=== PATIENT | male | born 1950 | race Caucasian/White ===

== ENCOUNTER 2021-07-08 07:25 | Outpatient (CLI) | payer OTHER, SELFPAY ==
--- NOTE | 2021-07-08 07:37 | US_ITS ---
WS: [id number] ULTRASOUND RENAL TECHNIQUE: Ultrasound examination of both kidneys. CLINICAL INFORMATION: STAGE 3A CKD COMPARISON: None. FINDINGS: RIGHT: Tiny right renal cyst measuring 7 mm. Right kidney is normal in size and appearance. Echogenicity: Normal. Cortical thickness: 1.0 cm; Normal. Hydronephrosis: None. Perinephric fluid: None. Right kidney measures: 11.4 cm x 7.1 cm x 4.2 cm. LEFT: Simple left renal cyst measuring 2.2 x 1.7 x 1.9 CM in the upper pole. Left kidney is normal in size and appearance. Echogenicity: Normal. Cortical thickness: 1.2 cm; Normal. Hydronephrosis: None. Perinephric fluid: None. Left kidney measures: 11.9 cm x 7.3 cm x 4.3 cm. Normal visualized aorta. Bladder volume 161 cc. Prominent prostate measuring 4.2 x 3.9 x 2.9 CM. Dennis mmend correlation PSA. US/US renal BI* [id number] IMPRESSION: 1. No hydronephrosis in either kidney. 2. Bilateral simple renal cysts. 3. Bladder is partially decompressed. 4. Prominent prostate measuring 4.2 x 3.9 x 2.9 CM. Recommend correlation PSA.
== END 2021-07-08 07:26 | disposition home or self-care (01) ==
LOC: RAD 07:31
PROVIDERS: PCP Emergency Medicine Emergency Medical Services; Visit Provider Registered Nurse
DX: N18.31 Chronic kidney disease, stage 3a (principal); Q61.02 Congenital multiple renal cysts; N40.0 Benign prostatic hyperplasia without lower urinary tract symptoms
CPT/HCPCS: 76770

== ENCOUNTER 2023-04-08 07:16 | Outpatient (RCR) | payer OTHER, SELFPAY | END 2023-04-22 23:59 | disposition home or self-care (01) | LOC: SPT 07:16 | PROVIDERS: PCP Emergency Medicine Emergency Medical Services; Visit Provider Emergency Medicine Emergency Medical Services | DX: I89.0 Lymphedema, not elsewhere classified (principal) | CPT/HCPCS: 97161 ==

== ENCOUNTER → 2023-09-06 15:15 | Outpatient (BNVA) | payer OTHER, SELFPAY | PROVIDERS: PCP Emergency Medicine Emergency Medical Services; Referring Provider Emergency Medicine Emergency Medical Services; Visit Provider Internal Medicine Cardiovascular Disease | DX: R07.9 Chest pain, unspecified (principal); I45.10 Unspecified right bundle-branch block; R06.02 Shortness of breath; I80.3 Phlebitis and thrombophlebitis of lower extremities, unspecified; E11.9 Type 2 diabetes mellitus without complications; E78.2 Mixed hyperlipidemia | CPT/HCPCS: 93005; 99204 ==

== ENCOUNTER 2023-09-12 07:33 | Outpatient (CLI) | payer OTHER, SELFPAY ==
--- NOTE | 2023-09-12 08:00 | USCV_ITS ---
Aquilino Del Rosario Age: 73 Gender: M : 1950 Exam Date: 09/12/2023 08:08 Ordering Phys: Mike Mercado MD ([email or web address]) Technologist: NAGA Exam Location: [facility] – [place] Indication: sob, EKG, CAD BP: 118 / 74 HR: 160 Rhythm: Sinus Technical Quality: Technically difficult study MEASUREMENTS (Male / Female) Normal Values 2D ECHO LV Diastolic Diameter PLAX 4.5 cm 4.2 - 5.9 / 3.9 - 5.3 cm IVS Diastolic Thickness 1.4 cm 0.6 - 1.0 / 0.6 - 0.9 cm IVS Systolic Thickness 1.7 cm LVPW Diastolic Thickness 1.4 cm 0.6 - 1.0 / 0.6 - 0.9 cm LVPW Systolic Thickness 1.9 cm LVOT Diameter 2.3 cm LV Ejection Fraction 2D Teich 50.1 % LV Ejection Fraction MOD 2C 72.8 % LV Ejection Fraction 2C AL 75.3 % LA Diameter 3.3 cm RA Systolic Volume 4C AL 20.6 ml RA Systolic Volume 4C MOD 19.2 ml Aorta at Sinotubular Diameter 3.4 cm IVC Diameter 2.2 cm M-MODE LA Ao Ratio MM 0.9 AV Cusp Separation MM 1.5 cm DOPPLER AV Peak Velocity 142.0 cm/s LVOT Peak Velocity 118.0 cm/s AV Area Cont Eq vti 4.1 cm squared AV Area Cont Eq pk 3.6 cm squared MV Peak Velocity 81.0 cm/s MV Area PHT 4.7 cm squared Mitral E to A Ratio 0.8 TR Peak Velocity 130.5 cm/s TR Peak Gradient 6.8 mmHg TR Mean Velocity 85.0 cm/s TR Mean Gradient 3.4 mmHg TR Velocity Time Integral 21.9 cm Right Atrial Pressure 3.0 mmHg Pulmonary Artery Systolic Pressu 9.8 mmHg PV Peak Velocity 114.5 cm/s RV Ejection Time 0.3 s FINDINGS Left Ventricle Normal left ventricular size and systolic function, EF 72%.mild left ventricular hypertrophy. No regional wall motion abnormalities. Grade I/IV diastolic dysfunction (abnormal relaxation filling pattern), normal to mildly elevated filling pressures. Right Ventricle Normal right ventricular size and systolic function. Right Atrium Normal right atrial size. Left Atrium Normal left atrial size. Mitral Valve No gross abnormalities noted Aortic Valve No gross abnormalities noted Tricuspid Valve No gross abnormalities noted Pulmonic Valve Mild pulmonary valve regurgitation. Pericardium No pericardial effusion. Aorta Normal aortic annulus size. IVC Normal inferior vena cava. CONCLUSIONS Normal left ventricular size and systolic function, EF 72%.mild left ventricular hypertrophy. No regional wall motion abnormalities. Grade I/IV diastolic dysfunction (abnormal relaxation filling pattern), normal to mildly elevated filling pressures. Mild pulmonary valve regurgitation. Normal cardiac chamber sizes. There is no pericardial effusion. Technically difficult study because of the poor ultrasonic window. Dr Mike eMrcado MD FACC (Electronically Signed) Final Date: 14 September 2023 08:18 S
== END 2023-09-12 07:34 | disposition home or self-care (01) ==
PROVIDERS: PCP Emergency Medicine Emergency Medical Services; Visit Provider Internal Medicine Cardiovascular Disease
DX: I37.1 Nonrheumatic pulmonary valve insufficiency (principal); I51.7 Cardiomegaly; I51.89 Other ill-defined heart diseases
CPT/HCPCS: 93306

== ENCOUNTER 2023-09-16 07:15 | Outpatient (CLI) | payer OTHER, SELFPAY ==
--- NOTE | 2023-09-16 07:28 | ECG_ITS ---
[facility] Test Date: 2023-09-16 Pat Name: Aquilino Del Rosario Department: Room: Gender: Male Bander Hand: Munira Love : 1950 Requested By: Mike Mercado Order Number: [id number] Jerrod MD: Mike Mercado M.D. Interpretive Statements NAME OF STUDY: LEXISCAN SESTAMIBI STRESS TEST INDICATION: SOB, CHF, PROCEDURE: At the baseline, the EKG revealed normal sinus rhythm with occasional PVCs. The baseline heart was 94 bpm with a blood pressue of 119/78 mm of Hg Lexiscan was infused over a period of 20 seconds. A total of 0.4 milligrams of Lexiscan was infused. The stress phase was continued for a total of 5 minutes. Heart rate at the end of the stress phase was 94 bpm with a blood pressure 112/76 mm of Hg. The EKG at the peak infusion revealed more frequent PVCs. Sestamibi was injected 20 seconds after the Lexiscan infusion. Heart rate at the end of the recovery phase was 91 bpm with a blood pressure of 109/78 mm of Hg. CONCLUSION: 1. No significant EKG changes with the LexiScan infusion 2. No LexiScan induced chest pain . More frequent PVCs with the Lexiscan infusion 3. Normal blood pressure and heart rate response 4. Sestamibi/sestamibi perfusion scan pending; see separate report. Electronically Signed On 09-18-2023 20:43:00 CDT by Mike Mercado M.D. [id number]
--- NOTE | 2023-09-16 07:28 | NMCV_ITS ---
NM magdaleno perf SPECT r/s* [id number] Aquilino Del Rosario Age: 73 Gender: M : 1950 Exam Date: 09/16/2023 08:05 Ordering Phys: Mike Mercado MD ([email or web address]) Technologist: EDGAR Perez Exam Location: [facility] Indications: CORONARY ANGIOPLASTY STATUS STRESS TEST Please see separate stress test report in [facility] for full findings IMAGE PROTOCOL Rest/Stress 1 Lexiscan Day Radiopharmaceutical Dose (mCi) Administration Site Administered by Rest: Tc-99m 11.0 IV EDGAR Guerrier Sestamibi Stress:Tc-99m 33.0 IV EDGAR Guerrier Sestamibi Rest: 16-Sep-2023 60 Discovery 630 Stress: 16-Sep-2023 30 Discovery 630 0.4mg Lexiscan. Supine position only as patient was unable to lay prone. SPECT RESULTS Technical Quality: Excellent Raw Data Analysis: Normal, Soft tissue attenuation Image Corrections: No attenuation or motion correction applied Summed Stress Score: 3 Summed Rest Score: 0 Summed Difference Score: 3 PERFUSION FINDINGS Small to moderate area of moderately decreased tracer uptake was noted in the mid and apical inferior wall region with some reversibility FUNCTIONAL RESULTS (calculated via Gated SPECT) Stress Image LV EF (%): 58 Stress EDV (mL):177 TID: 1.06 Stress ESV (mL):75 FUNCTIONAL FINDINGS: Segmental wall motion analysis revealing no gross wall motion abnormalities IMPRESSIONS 1. Myocardial perfusion imaging revealing small to moderate area of moderately decreased tracer uptake involving the mid and apical inferior wall region, with some reversibility suggesting myocardial ischemia in the distribution of the right coronary artery. 2. Normal LV ejection fraction of 58%. 3. LV wall motion analysis revealing no gross wall motion abnormalities. 4. Mildly dilated LV cavity with end-systolic volume was 75 ml No similar previous studies are available for comparison Dr Mike Mercado MD FACC (Electronically Signed) Final Date: 16 September 2023 15:27 S
[2023-09-16 07:30] VITALS: BMI 48.7
[2023-09-16] MEDS: regadenoson 0.4 Mg/5 ml Syringe 0.400000000000000022 MG IVP (08:48)
[2023-09-16 08:58] VITALS: BP 109/78; PULSE 95
== END 2023-09-16 07:16 | disposition home or self-care (01) ==
LOC: CDL 07:16
PROVIDERS: PCP Emergency Medicine Emergency Medical Services; Visit Provider Internal Medicine Cardiovascular Disease
DX: Z98.61 Coronary angioplasty status (principal)
CPT/HCPCS: 36415; 78452; 93017; 96374; A9500; J2785

== ENCOUNTER → 2023-11-30 10:14 | Outpatient (BNVA) | payer OTHER, SELFPAY | PROVIDERS: PCP Emergency Medicine Emergency Medical Services; Visit Provider Nurse Practitioner Family | DX: R06.02 Shortness of breath (principal); Z87.891 Personal history of nicotine dependence | CPT/HCPCS: 99213 ==

== ENCOUNTER → 2024-02-29 13:36 | Outpatient (BNVA) | payer OTHER, SELFPAY | PROVIDERS: PCP Emergency Medicine Emergency Medical Services; Visit Provider Internal Medicine Cardiovascular Disease | DX: I50.9 Heart failure, unspecified (principal); R06.02 Shortness of breath; R94.39 Abnormal result of other cardiovascular function study; Z79.01 Long term (current) use of anticoagulants; I48.91 Unspecified atrial fibrillation; I25.118 Atherosclerotic heart disease of native coronary artery with other forms of angina pectoris; E78.2 Mixed hyperlipidemia; I80.3 Phlebitis and thrombophlebitis of lower extremities, unspecified; E11.9 Type 2 diabetes mellitus without complications | CPT/HCPCS: 99215 ==

== ENCOUNTER 2024-03-09 13:47 | Outpatient (CLI) | payer OTHER, SELFPAY ==
[2024-03-09 14:18] LABS: Basophils % 0.4 %; Eosinophils # 0.2 10^3/uL (0.0-0.8); Hematocrit 36.2 % (37-53); Lymphocytes # 0.8 10^3/uL (0.8-4.8); Lymphocytes % 10.4 %; Mean Corpuscular HGB Conc 31.5 g/dL (30-55); Mean Corpuscular Hemoglobin 27.5 pg (27-33); Mean Corpuscular Volume 87.4 fl (82-101); Monocytes # 0.5 10^3/uL (0.2-0.9); Monocytes % 5.9 %; Neutrophils # 6.22 10^3/uL (1.8-7.7); Nucleated Red Blood Cells % 0 %; Platelet Count 253 10^3/cmm (157-399); Red Blood Count 4.14 10^6/uL (3.85-5.65); Red Cell Distribution Width 17.2 % (12.1-15.1); White Blood Count 7.77 10^3/uL (3.29-11.43)
[2024-03-09 14:46] LABS: Anion Gap 15.6 (5-19); Blood Urea Nitrogen 29 mg/dL (8-23); Calcium 8.9 mg/dL (8.5-10.5); Carbon Dioxide 25 mmol/L (22-29); Chloride 103 mmol/L (98-107); Glucose 152 mg/dL (65-115); NT Pro B Type Natriuretic Pept 262 pg/mL (0-125); Osmolality Calculated 297 mOsm/kg (285-295); Potassium 4.6 mmol/L (3.5-5.1); Sodium 139 mmol/L (136-145)
== END 2024-03-09 13:48 | disposition home or self-care (01) ==
LOC: LAB 13:48
PROVIDERS: PCP Emergency Medicine Emergency Medical Services; Visit Provider Internal Medicine Cardiovascular Disease
DX: R06.02 Shortness of breath (principal); I25.118 Atherosclerotic heart disease of native coronary artery with other forms of angina pectoris; Z79.01 Long term (current) use of anticoagulants; I48.91 Unspecified atrial fibrillation
CPT/HCPCS: 36415; 80048; 83880; 85025; 85610; 86850; 86900

== ENCOUNTER 2024-03-23 09:32 | Observation (INO) | payer OTHER, MEDICARE, SELFPAY ==
[2024-03-23] VITALS (16 sets, daily range): BP systolic 98–170; BP diastolic 71–104; PULSE 73–94; RESP 13–28; TEMP 36.8–37.5; O2SAT 91–97; BMI 45.6
[2024-03-23] MEDS: aspirin 325 mg Tablet PO (07:17)
[2024-03-23] MEDS: diphenhydrAMINE 50 mg Capsule PO (07:18)
[2024-03-23 07:28] LABS: Anion Gap 14.7 (5-19); Blood Urea Nitrogen 21 mg/dL (8-23); Calcium 9.1 mg/dL (8.5-10.5); Carbon Dioxide 27 mmol/L (22-29); Chloride 100 mmol/L (98-107); Creatinine Clr Calc Pharmacy 76.3575; Glucose 128 mg/dL (65-115); Osmolality Calculated 289 mOsm/kg (285-295); Potassium 4.7 mmol/L (3.5-5.1); Sodium 137 mmol/L (136-145)
--- NOTE | 2024-03-23 07:44 | PC.NURSE ---
250ml IV NS bolus administered. Bolus started out of 1000ml NS bag pulled from salvage laborer.
--- NOTE | 2024-03-23 08:21 | W.PM.OPSUD ---
Surgery/Procedure H&P Update DATE OF PROCEDURE: March 23, 2024 DATE H&P PERFORMED: 02/29/24 H&P UPDATE INFORMATION: I have reviewed H&P completed within last 30 days, I have examined patient prior to procedure and No changes to prior documentation PREOP DIAGNOSIS: Possible ASHD PRIMARY INDICATION FOR PROCEDURE: CHF, Abnrmal MPI, multiple risk factors PLANNED PROCEDURE: Operation Date: 03/23/24 08:30 Proposed Procedures p Cardiac Catheterization(Left) - Mike Mercado MD PATIENT REASSESSED PRIOR TO SEDATION, WITH NO CHANGE NOTED: Yes PHYSICAL EXAM: alert, oriented x 3, clear to auscultation bilaterally and regular rate & rhythm AIRWAY EVAL/ANESTHESIA PLAN: normal airway, see other exam findings, ASA III, Monitored Anesthesia, Local Anesthesia, Risks, benefits & alternatives of sedation and/or procedure discussed and Patient agrees to continue as planned
--- NOTE | 2024-03-23 08:30 | XACV_ITS ---
Exam Room: 2 Ht: 178 cm Wt: 144 kg BSA: 2.74 m2 Gender: Male : 1950 Any Known Allergies: No known allergies Exam Priority: Routine Procedure(s): Procedure Description: Diagnostic procedure Procedure Description: Left Heart Catheterization Procedure Description: Left ventriculography Procedure Description: Coronary Angiography Rogelio SOLOMON; Diagnostic Cath Status: Elective Diagnostic Findings * The left main is extremely short vessel with no significant stenotic lesions. * The left anterior descending artery is a medium caliber vessel which appears to wraparound the left and right apex. Mid and distal segment of the artery were found to have some minimal intimal irregularities. No significant stenotic lesions were noted. * The left circumflex artery is a medium caliber vessel with minimal intimal irregularities proximally. No Significant is noted lesions. * The right coronary artery is a medium to large caliber, dominant vessel with no c significant stenotic lesions. The proximal segment of the artery was found to have minimal intimal irregularities. * The LV gram was performed in the AC projection. The LV cavity appeared to be normal size. There is mild diffuse hypokinesis left ventricular ejection fraction of 45 to 50%. Conclusions 1. 74-year-old white male with history of diabetes, dyslipidemia, presenting with new onset of heart failure. Myocardial perfusion imaging revealed a small areas of reversible and is reversible defect in the distribution of the right coronary artery. Patient continued to have shortness of breath with exertion. In view of the new onset of symptoms, multiple risk factors and the ongoing symptoms, in order to further evaluate the coronary status, a cardiac catheterization was recommended. Patient underwent left heart catheterization with left and right coronary angiogram and LV angiogram today. The findings are as follows. 2. qShort left main with no significant stenotic lesions. Minimal intimal irregularities in the proximal segments of the left anterior descending artery, left circumflex artery and the right coronary artery. Slightly diminished ejection fraction of 45 to 50%. Mild diffuse hypokinesia of the left ventricle. LVEDP of 26 with went up to 34 following the LV angiogram. Diagnostic RX Recommendation: medical therapy and/or counseling LV EDP: 26 mmHg Ventriculography Ejection Fraction: 45.0 % Left Ventriculography Findings: * The LV gram was performed in the AC projection. The LV cavity appeared to be normal size. There is mild diffuse hypokinesia left ventricular ejection fraction of 45 to 50%. No filling defects were noted. No significant mitral valve prolapse or mitral regurgitation. The LVEDP was 26 which went up to 34 following the LV angiogram. Pressures Phase:Rest AO : 104 / 78 ( 91 ) @ 9:42:00 AM 105 / 73 ( 86 ) @ 9:47:00 AM 110 / 91 ( 101 ) @ 10:00:00 AM 134 / 83 ( 106 ) @ 10:06:00 AM 135 / 77 ( 107 ) @ 10:06:00 AM LV : 125 / 7 / 26 @ 10:05:00 AM 113 / 20 / 34 @ 10:06:00 AM 129 / 11 / 33 @ 10:06:00 AM Valves Phase:DefaultPhase AV : 0.0 @ 9:10:49 AM AV Mean Gradient: 0.0 @ 9:10:49 AM Clinical Evaluation EBL: 5mL-10mL Procedural Details Procedure Consent Obtained. Pre-Procedure Time Out. Identified patient by full name and date of as verbalized by the patient/guarantor. Does the consent match the physician's order: Yes. Accurate & Complete Informed Consent: Yes. Inpatient/Outpatient History & Physical on Chart: Yes. If H&P is completed, is and addenduem needed: No; If yes, is the addendum complete: N/A. Visualize and Verify Site with Patient/Guarantor: N/A. Relevant Radiology Images available: Yes. Pre-op teaching completed and patient verbalized understanding. The risks, benefits, and alternatives of sedation and/or procedure were discussed by physician. The patient agrees to continue. Procedure started. Current Diagnosis : Chest Pain. [facility] Clinical Fraility Score: 3: Managing Well. Logistics Officer Indications: Other. Chest Pain Symptom Assessment: Atypical Angina. Correct patient, site and procedure confirmed by cath team. Current diagnosis: Chest Pain. PERRLA. Strong, equal hand fire support specialist bilaterally. Lungs clear x 5 lobes. IV Site on Arrival: 20 gauge in the right anticubital. IV Fluids: 0.9% NaCl at KVO. 0 mL infused prior to clinical genetics laboratory chief. Pre Procedural Pulses: bilateral dorsalis pedis was Doppled. Pre Procedural Pulses: bilateral posterior tibial was Doppled. Pre Procedural Pulses: bilateral radial was 3+. Oxygen started at 2liters/min via nasal canula. right groin was prepped with chloroprep then draped in the usual sterile fashion. right radial was prepped with chloroprep then draped in the usual sterile fashion. Baseline sample Acquired. HR: 85 BPM. Physician notified. Physician arrived. Physician scrubbed in. Immediate Pre-Procedure Time Out. Correct Patient: Yes; Correct Procedure: Yes; Correct Site: Yes; Correct Patient Position: Yes; Correct Supplies: Yes; Dried Flammable Prep: Yes; Blood Products Available: N/A;. Lidocaine 1% infiltrated to the right radial. Arterial access obtained. A 5 [place] Jose Elias catheter in over wire. Catheter removed over the exchange wire. A 5 [place] TIG catheter in over wire. Multiple views taken of left coronary artery. Catheter removed over the exchange wire. A 5 [place] JR4 catheter in over wire. Multiple views taken of right coronary artery. Catheter removed over the exchange wire. A 5 [place] Angled Pig catheter in over wire. EDP Sample taken: LV 125/7,26; HR: 87 BPM; SpO2: 99%. LV gram performed in AC @ 10 mL/second for a total of 30 mL. EDP Sample taken: LV 113/20,34; HR: 85 BPM; SpO2: 99%. Pullback taken: LV 129/11,33; AO 134/83(106); Mean: 0mmHg, Peak to Peak: 0mmHg, SEP: 7sec/min; HR: 87 BPM; SpO2: 99%. Catheter removed over the exchange wire. Vital chart was stopped. A TR Band was successful obtaining hemostatsis at the Right Radial artery insertion site. Post Procedure: Pulses reassessed and unchanged. PERRLA. Strong, equal hand fire support specialist bilaterally. No VTE prophylaxis required. Medication's Wasted: Lidocaine 1% = 18 mL. Medication's Wasted: Nitro = 49.8 mcg. Medication's Wasted: Heparin = 1000 units. Medication's Wasted: Other = Fentanyl 50 mcg. Complications: None. Estimated blood loss: 5mL-10mL. Responsiveness - Normal response to verbal stimuli; alert and oriented, PERRLA. Airway - Unaffected, no intervention required; spontaneous ventilation. Circulation: W/N/L, pulses unchanged. Nausea/Vomiting: No. Procedure completed. Patient transferred by bed to 1st floor. Access Site Site: Right Radial artery Sheath Size: 6 Fr Hemostasis Method: TR Band Hemostasis Success: Successful Procedure Medications Start: 8:27 AM Stop: 8:27 AM Medication: Versed Amount: 1 mg Route: I.V. Start: 8:27 AM Stop: 8:27 AM Medication: Fentanyl Amount: 50 mcg Route: I.V. Start: 8:38 AM Stop: 8:38 AM Medication: Verapamil Amount: 5 mg Route: I.A. Start: 8:38 AM Stop: 8:38 AM Medication: Nitrogylcerin Amount: 200 mcg Start: 8:41 AM Stop: 8:41 AM Medication: Heparin Amount: 5000 units Route: I.V. Start: 8:52 AM Stop: 8:52 AM Medication: Versed Amount: 1 mg Route: I.V. I, the attending physician, have reviewed and verified all procedure medications. Yes, all medications given per verbal order History/Risk Factors Hypertension: No Dyslipidemia: Yes Diabetic Therapy: Oral Peripheral Arterial Disease (PAD): No Myocardial Infarction (FL): No Obesity: Yes Renal Disease: No Tobacco Use: Former Prior Interventions PCI: No CABG: No Valve Surgery: No Report Signatures Finalized by Dr Mike Mercado MD [facility] on 03/23/2024 05:21 PM
--- NOTE | 2024-03-23 09:16 | P.HP_ITS ---
Providers/Chief Complaint 2 Admitting Physician: Dr. ROSALBA Mercado Primary Care Provider: Geraldo Lazcano DO Chief Complaint: R94.39 History of Present Illness Aquilino Del Rosario is a 74 year old male with a history of diabetes, dyslipidemia,and chronic kidney disease is diagnosed with a new onset of heart failure. He had a myocardial perfusion imaging which reveals some areas of fixed and reversible defects in the distribution of the right coronary artery. He continues to have dyspnea on exertion. In view of his ongoing symptoms, in order to further evaluate the coronary status, a cardiac catheterization was recommended. Because of chronic kidney disease, he was given IV hydration preoperatively. He was found to have cardiomyopathy with an LV ejection fraction around 45%. LVEDP was 26 mmHg. He is admitted to the hospital for careful IV hydration and observation. Review of Systems 2 Narrative: CONSTITUTIONAL: No fever chills weight loss or gain or night sweats. HEENT: Normocephalic, atraumatic. RESPIRATORY: No cough, sputum, hemoptysis or wheezing. CARDIOVASCULAR: No shortness of breath, chest pain, PND, orthopnea, lower extremity edema, presyncope or syncope. GI: no nausea vomiting diarrhea. OFFICE CLERK: No numbness, tingling, weakness or loss of function in any part of the body. MUSCULOSKELETAL: No knee or joint pain or rashes. Medications/Allergies Home Medications Medication Instructions Recorded Confirmed Last Taken Type cholecalciferol (vitamin D3) 50 50 mcg PO DAILY 09/06/23 03/12/24 03/22/24 17:00 History mcg (2,000 unit) capsule empagliflozin 25 mg tablet 25 mg PO DAILY 09/06/23 03/12/24 03/22/24 17:00 History furosemide 40 mg tablet 40 mg PO DAILY 09/06/23 03/12/24 03/21/24 History gabapentin 300 mg capsule 300 mg PO BID 09/06/23 03/12/24 Unknown History glipizide 10 mg tablet 10 mg PO DAILY 09/06/23 03/12/24 03/22/24 07:00 History metformin 1,000 mg tablet 1,000 mg PO DAILY 09/06/23 03/12/24 03/22/24 07:00 History pioglitazone 45 mg tablet 45 mg PO DAILY 09/06/23 03/12/24 03/21/24 History ropinirole 4 mg tablet 4 mg PO DAILY 09/06/23 03/12/24 03/23/24 05:00 History rosuvastatin 40 mg tablet 40 mg PO DAILY 09/06/23 03/12/24 03/22/24 07:00 History sertraline 50 mg tablet 50 mg PO DAILY 09/06/23 03/12/24 03/23/24 05:00 History isosorbide mononitrate 30 mg 30 mg PO DAILY #90 tabs 09/28/23 03/12/24 03/22/24 17:00 Rx tablet,extended release 24 hr Allergies Allergy/AdvReac Type Severity Reaction Status Date / Time No Known Allergies Allergy Verified 03/12/24 07:54 PFSH Acute 2 PFSH: Medical History Phlebitis and thrombophlebitis of lower extremities, unspecified Hyperlipidemia, unspecified Type 2 diabetes mellitus without complications Family History Father CAD (coronary artery disease) Congenital heart disease Congestive heart failure (CHF) Heart disease Denies family history of Diabetes Anemia Aneurysm Arrhythmia Atrial fibrillation TIA (transient ischemic attack) Hyperlipidemia Hyperthyroidism Hypothyroidism Sudden cardiac Chronic kidney disease (CKD) Carotid artery disease Pulmonary embolism Hypertension Cardiomyopathy Stroke Social History Smoking and tobacco/nicotine status: former use of tobacco/nicotine Vitals/I&O/Wt Last Vital Signs Temp 98.3 F 03/23/24 07:18 Pulse 93 03/23/24 07:18 Resp 18 03/23/24 07:18 BP 126/79 03/23/24 07:18 Pulse Ox 93 03/23/24 07:18 O2 Del Method Room Air 03/23/24 07:18 Weight last 48 hrs Weight 318 lb Physical Exam 2 Narrative: GENERAL: The patient is alert and oriented times three. Not in any acute distress. HEENT: No significant pallor, icterus or lymphadenopathy.Oral cavity: There are no mucous membrane lesions. NECK: Trachea appears to be central. No masses noted. No JVD or thyromegaly appreciated. RESPIRATORY: Chest is symmetrical. No intercostals muscle retraction or any accessory muscle activation. There is no chest wall tenderness. Breath sounds are heard bilaterally. No rales or rhonchi heard. No evidence of any consolidation. BREASTS: Deferred. HEART: The heart sounds are normal. No S3 or S4. No significant murmurs. No pericardial rub ABDOMEN: No vessel pulsations or distention. No tenderness. No organomegaly appreciated. Bowel sounds are normally heard. : Deferred. RECTAL: Deferred. LYMPHATIC: No lymphadenopathy noted in the neck. EXTREMITIES: No edema or cyanosis. No clubbing. The right radial arterial puncture site has no hematoma bleeding MUSCULOSKELETAL: No acute joint deformities or swelling SKIN: There are no significant rashes or ecchymosis NEUROPSYCHIATRIC: The patient is alert and oriented x3. Appears to be in a good mood. No tremors or rigidity noted. Data 03/23/24 07:00 Other Labs: Laboratory Last Values Sodium 137 mmol/L (136-145) 03/23/24 07:00 Potassium 4.7 mmol/L (3.5-5.1) 03/23/24 07:00 Chloride 100 mmol/L (98-107) 03/23/24 07:00 Carbon Dioxide 27 mmol/L (22-29) 03/23/24 07:00 Anion Gap 14.7 (5-19) 03/23/24 07:00 BUN 21 mg/dL (8-23) 03/23/24 07:00 Creatinine 1.2 mg/dL (0.7-1.2) 03/23/24 07:00 GFR Calculation Not Reportable 03/23/24 07:00 Glucose 128 mg/dL (65-115) H 03/23/24 07:00 Calculated Osmolality 289 mOsm/kg (285-295) 03/23/24 07:00 Calcium 9.1 mg/dL (8.5-10.5) 03/23/24 07:00 A&P Assessment and plan (1) Nonischemic congestive cardiomyopathy: The patient will be initiated on guideline directed medical treatment. Careful IV Lasix on a as needed basis. (2) Hyperlipidemia, unspecified: May continue on the current management Qualifiers: Hyperlipidemia type: mixed hyperlipidemia Qualified Code(s): E78.2 - Mixed hyperlipidemia (3) Congestive heart failure: Will be closely monitoring for development of any decompensated heart failure. Qualifiers: Heart failure type: unspecified Heart failure chronicity: unspecified Qualified Code(s): I50.9 - Heart failure, unspecified (4) Type 2 diabetes mellitus without complications: Hold off on metformin for today and for the next 2 days. Qualifiers: Diabetes mellitus truck terminal manager insulin use: without senior care use Qualified Code(s): E11.9 - Type 2 diabetes mellitus without complications (5) Chronic kidney disease: Careful IV hydration today. Repeat BMP in the morning. Qualifiers: Chronic kidney disease stage: stage 2 (mild) Qualified Code(s): N18.2 - Chronic kidney disease, stage 2 (mild) Plan Based on the clinical progress, further management decisions will be made. Attestations 2 Medical Necessity Statement*: Patient may require 1 midnight stay. Coding Level of Care Code Acute Code for g Fwd Diagnoses Nonischemic congestive cardiomyopathy I42.0 Mixed hyperlipidemia E78.2 Hyperlipidemia type: mixed hyperlipidemia Congestive heart failure, unspecified HF chronicity, unspecified heart failure type I50.9 Heart failure type: unspecified Heart failure chronicity: unspecified Type 2 diabetes mellitus without complication, without long-term current use of insulin E11.9 Diabetes mellitus truck terminal manager insulin use: without truck terminal manager use Stage 2 chronic kidney disease N18.2 Chronic kidney disease stage: stage 2 (mild)
--- NOTE | 2024-03-23 09:36 | PC.NURSE ---
Patient came from laboratory clerk to CSU at 0920, with a right radial TR-band.
[2024-03-23] MEDS: sodium chloride 0.9% 1,000 ML 100 ML IV ×2 (09:53→15:32)
[2024-03-23 11:25] LABS: Glucose Point of Care 123 mg/dL (70-110)
--- NOTE | 2024-03-23 16:34 | PC.NURSE ---
Patient had a right radial TR-band, no hematoma is noted. Air is removed slowly 2ml's at a time. TR-band is removed and dressing of 2 x 2 and tegaderm is applied. Patient tolerated well. Patient is reminded not to use his right hand/wrist. He states understanding.
--- NOTE | 2024-03-23 18:29 | PC.NURSE ---
Patient refused to take his gabapentin at 1800. Patient states I stopped taking that about 5 months ago due to side effects.
[2024-03-23] MEDS: sacubitril/valsartan 24-26 mg Tablet 1 EACH PO (20:45)
[2024-03-24] VITALS: BP 118/77; PULSE 78; RESP 20; TEMP 36.9; O2SAT 91
[2024-03-24 03:48] VITALS: BP 123/73; PULSE 92; RESP 20; TEMP 36.3; O2SAT 99
[2024-03-24 04:27] VITALS: PULSE 89
[2024-03-24 06:33] LABS: Anion Gap 13.7 (5-19); Blood Urea Nitrogen 13 mg/dL (8-23); Calcium 9.1 mg/dL (8.5-10.5); Carbon Dioxide 26 mmol/L (22-29); Chloride 103 mmol/L (98-107); Creatinine Clr Calc Pharmacy 76.2847; Glucose 106 mg/dL (65-115); Osmolality Calculated 287 mOsm/kg (285-295); Potassium 4.7 mmol/L (3.5-5.1); Sodium 138 mmol/L (136-145)
[2024-03-24 08:00] VITALS: BP 138/83; PULSE 92; RESP 17; TEMP 36.6; O2SAT 93
[2024-03-24] MEDS: pioglitazone 30 mg Tablet 45 MG PO (08:34)
[2024-03-24] MEDS: FUROsemide 40 mg Tablet PO (08:34)
[2024-03-24] MEDS: ropinirole 2 mg Tablet 4 MG PO (08:34)
[2024-03-24] MEDS: isosorbide mononitrate ER 30 mg Tablet PO (08:34)
[2024-03-24] MEDS: sertraline 50 mg Tablet PO (08:34)
[2024-03-24] MEDS: atorvastatin 40 mg Tablet 80 MG PO (08:35)
[2024-03-24] MEDS: sacubitril/valsartan 24-26 mg Tablet 1 EACH PO (08:35)
[2024-03-24] MEDS: cholecalciferol (vitamin D3) 1,000 unit Tablet 2000 UNIT PO (08:35)
--- NOTE | 2024-03-24 10:04 | PC.NURSE ---
Dejuan is called into [facility]. [facility] and ernestina does not work with the [facility] providers.
[2024-03-24 10:10] VITALS: BP 138/83; PULSE 92; RESP 17; TEMP 36.6; O2SAT 93
== END 2024-03-24 10:35 | disposition home or self-care (01) ==
LOC: CSU 09:34
PROVIDERS: Admitting Provider Internal Medicine Cardiovascular Disease; PCP Emergency Medicine Emergency Medical Services; Visit Provider Internal Medicine Cardiovascular Disease
DX: I42.0 Dilated cardiomyopathy (principal); I50.9 Heart failure, unspecified; E78.2 Mixed hyperlipidemia; E11.22 Type 2 diabetes mellitus with diabetic chronic kidney disease; N18.2 Chronic kidney disease, stage 2 (mild); Z79.899 Other long term (current) drug therapy; Z87.891 Personal history of nicotine dependence; I80.3 Phlebitis and thrombophlebitis of lower extremities, unspecified; I48.91 Unspecified atrial fibrillation; Z79.01 Long term (current) use of anticoagulants; Z82.49 Family history of ischemic heart disease and other diseases of the circulatory system
CPT/HCPCS: 36415; 36416; 80048; 82962; 93458; 99152; 99153; C1769; C1887; C1894; G0378; J1644; J2250; J3010; J3490; J7030; Q0163; Q9967

== ENCOUNTER → 2024-04-04 14:01 | Outpatient (BNVA) | payer OTHER, SELFPAY | PROVIDERS: PCP Emergency Medicine Emergency Medical Services; Visit Provider Nurse Practitioner Family | DX: I42.8 Other cardiomyopathies (principal); I25.10 Atherosclerotic heart disease of native coronary artery without angina pectoris; I13.10 Hypertensive heart and chronic kidney disease without heart failure, with stage 1 through stage 4 chronic kidney disease, or unspecified chronic kidney disease; E11.22 Type 2 diabetes mellitus with diabetic chronic kidney disease; N18.4 Chronic kidney disease, stage 4 (severe); Z87.891 Personal history of nicotine dependence; Z79.84 Long term (current) use of oral hypoglycemic drugs | CPT/HCPCS: 99213 ==

== ENCOUNTER 2024-09-24 06:44 | Outpatient (CLI) | payer OTHER, SELFPAY ==
--- NOTE | 2024-09-24 06:50 | USCV_ITS ---
Aquilino Del Rosario Age: 74 Gender: M : 1950 Exam Date: 09/24/2024 06:55 Ordering Phys: Jaye Mejía MD Technologist: [facility] [place] [facility] [place] TDS due to pt habitus HISTORY: Diameter (cm) AP x Transverse x Length Velocity (cm/s) Waveform Prox Aorta: 2.10 x 2.70 x 58.80 Mid Aorta: 2.00 x 2.10 x 114.90 Distal Aorta: 2.40 x 2.60 x 94.10 Right Iliac Prox: 1.07 x 1.19 x 134.60 Left Iliac Prox: 1.07 x 0.98 x 136.20 Stent Prox Landing x x Aneurysmal Sac Max x x Lt Lat Sac Dim Rt Lat Sac Dim Stent Dist Landing x x Right Iliac Stent x x Left Iliac Stent x x Right Renal Art Left Renal Art FINDINGS: Comparison: none available. A complete assessment of the abdominal aorta was not possible. Ectatic abdominal aorta with evidence of atherosclerotic plaque noted. There is evidence of atherosclerotic plaque no significan stenosis in the right common iliac artery. There is evidence of atherosclerotic plaque no significan stenosis in the left common iliac artery. CONCLUSIONS Limited exam by body habitus. No AAA identified. Dr. Tyalor Jorge DO (Electronically Signed) Final Date: 24 September 2024 07:49 S
== END 2024-09-24 06:45 | disposition home or self-care (01) ==
PROVIDERS: Visit Provider Family Medicine
DX: Z01.89 Encounter for other specified special examinations (principal); I77.811 Abdominal aortic ectasia; I70.0 Atherosclerosis of aorta; I70.8 Atherosclerosis of other arteries
CPT/HCPCS: 76706

== ENCOUNTER → 2024-10-30 11:42 | Outpatient (BNVA) | payer OTHER, SELFPAY | PROVIDERS: PCP Nurse Practitioner; Visit Provider Internal Medicine Cardiovascular Disease | DX: R06.02 Shortness of breath (principal) | CPT/HCPCS: 36415; 80048; 83880 ==

== ENCOUNTER 2024-12-14 05:59 | Outpatient (CLI) | payer OTHER, SELFPAY ==
--- NOTE | 2024-12-14 06:15 | USCV_ITS ---
Aquilino Del Rosario Age: 74 Gender: M : 1950 Exam Date: 12/14/2024 06:30 Ordering Phys: Mike Mercado MD ([email or web address]) Technologist: Benny Canales Exam Location: [facility] – [place] Indication: cardiomyopathy BP: 131 / 83 HR: 77 Rhythm: Sinus Technical Quality: Adequate MEASUREMENTS (Male / Female) Normal Values 2D ECHO LV Diastolic Diameter PLAX 4.7 cm 4.2 - 5.9 / 3.9 - 5.3 cm IVS Diastolic Thickness 1.5 cm 0.6 - 1.0 / 0.6 - 0.9 cm IVS Systolic Thickness 2.0 cm LVPW Diastolic Thickness 2.1 cm 0.6 - 1.0 / 0.6 - 0.9 cm LVPW Systolic Thickness 3.1 cm LVOT Diameter 2.1 cm LV Ejection Fraction 2D Teich 62.3 % LV Ejection Fraction MOD 4C 74.7 % LV Ejection Fraction MOD 2C 65.0 % LV Ejection Fraction 2C AL 67.0 % LA Diameter 4.1 cm RA Systolic Volume 4C AL 20.3 ml RA Systolic Volume 4C MOD 19.4 ml LA Sys Volume AL 54.4 cm cubed LA Sys Volume Index AL 24.8 cm cubed/m squared Aorta at Sinotubular Diameter 2.8 cm IVC Diameter 1.9 cm M-MODE LA Ao Ratio MM 1.2 AV Cusp Separation MM 2.1 cm DOPPLER AV Peak Velocity 151.0 cm/s LVOT Peak Velocity 75.0 cm/s AV Area Cont Eq vti 2.0 cm squared AV Area Cont Eq pk 1.8 cm squared MV Peak Velocity 87.7 cm/s MV Area PHT 6.0 cm squared Mitral E to A Ratio 0.9 TR Peak Velocity 291.0 cm/s TR Peak Gradient 33.9 mmHg TR Mean Velocity 227.0 cm/s TR Mean Gradient 21.9 mmHg TR Velocity Time Integral 71.2 cm PV Peak Velocity 126.3 cm/s RV Ejection Time 0.3 s FINDINGS Left Ventricle Normal left ventricular size, systolic function and wall thickness, with no regional wall motion abnormalities. LVEF estimated normal at 65%. Right Ventricle Normal right ventricular size and systolic function. Right Atrium Normal right atrial size. Left Atrium Normal left atrial size. Mitral Valve Mildly thickened mitral valve. Trace mitral regurgitation. Aortic Valve Mildly thickened aortic valve. No aortic stenosis. Tricuspid Valve Structurally normal tricuspid valve. Trace tricuspid valve regurgitation. Pulmonic Valve Pulmonic valve not well visualized. Trace pulmonary valve regurgitation. Pericardium No pericardial effusion. Aorta Normal size aortic root and proximal ascending aorta. IVC Normal IVC dimension with >50% respiratory change of the inferior vena cava. CONCLUSIONS Normal LV systolic function. Normal LVEF, 65%. Normal RV size and RV systolic function. Normal right and left atria. No significant valvular abnormality noted. Normal right heart and pulmonary pressures (PAP 25-30 mmHg). Ivonne Smith MD (Electronically Signed) Final Date: 14 December 2024 16:42 S
== END 2024-12-14 06:00 | disposition home or self-care (01) ==
PROVIDERS: PCP Nurse Practitioner; Visit Provider Internal Medicine Cardiovascular Disease
DX: I42.0 Dilated cardiomyopathy (principal); I05.9 Rheumatic mitral valve disease, unspecified; I35.8 Other nonrheumatic aortic valve disorders
CPT/HCPCS: 93306

== ENCOUNTER → 2025-01-08 08:50 | Outpatient (BNVA) | payer OTHER, SELFPAY | PROVIDERS: PCP Nurse Practitioner; Visit Provider Nurse Practitioner Family | DX: M79.89 Other specified soft tissue disorders (principal); I50.9 Heart failure, unspecified; E78.5 Hyperlipidemia, unspecified; R94.30 Abnormal result of cardiovascular function study, unspecified; E11.9 Type 2 diabetes mellitus without complications; Z79.84 Long term (current) use of oral hypoglycemic drugs; Z87.891 Personal history of nicotine dependence; R06.02 Shortness of breath; E78.2 Mixed hyperlipidemia | CPT/HCPCS: 36415; 80048; 83880; 85025; 99214 ==

== ENCOUNTER → 2025-03-25 08:43 | Outpatient (BNVA) | payer OTHER, SELFPAY | PROVIDERS: PCP Nurse Practitioner; Visit Provider Internal Medicine | DX: E11.9 Type 2 diabetes mellitus without complications (principal); E78.5 Hyperlipidemia, unspecified; I50.9 Heart failure, unspecified; I87.2 Venous insufficiency (chronic) (peripheral); Z79.85 Long-term (current) use of injectable non-insulin antidiabetic drugs | CPT/HCPCS: 99204 ==

== ENCOUNTER 2025-05-09 09:01 | Outpatient (CLI) | payer OTHER, SELFPAY ==
--- NOTE | 2025-05-09 09:30 | USR_ITS ---
PROCEDURE INFORMATION: Exam: US Duplex Lower Extremity Veins, Bilateral Exam date and time: 05/09/2025 9:19 AM Age: 75 years old Clinical indication: Swelling (edema) of limb; Lower extremity, bilateral; Additional info: M79.604 - pain in right leg TECHNIQUE: Imaging protocol: Real-time duplex ultrasound of the bilateral extremities with 2-D brock scale, color Doppler flow and spectral waveform analysis including responses to compression and other maneuvers (when performed) with image documentation. Complete exam focused on the lower extremity veins. COMPARISON: US renal BI* [id number] 07/08/2021 7:47 AM FINDINGS: The common femoral, femoral, popliteal and posterior tibial veins are patent. There is appropriate compression and augmentation. Doppler interogation reveals venous blood flow. Reflux is noted in the right greater saphenous vein [id number]. US/[place] [id number] IMPRESSION: 1. No evidence of deep venous thrombosis. 2. Reflux is noted in the right greater saphenous vein [id number].
== END 2025-05-09 09:02 | disposition home or self-care (01) ==
LOC: RAD 09:02
PROVIDERS: PCP Nurse Practitioner; Visit Provider Internal Medicine Cardiovascular Disease
DX: M79.604 Pain in right leg (principal); M79.605 Pain in left leg; I87.8 Other specified disorders of veins
CPT/HCPCS: 93970

== ENCOUNTER → 2025-05-30 11:27 | Outpatient (BNVA) | payer OTHER, SELFPAY | PROVIDERS: PCP Nurse Practitioner; Visit Provider Internal Medicine Cardiovascular Disease | DX: I50.9 Heart failure, unspecified (principal); E78.5 Hyperlipidemia, unspecified; I80.3 Phlebitis and thrombophlebitis of lower extremities, unspecified; E11.22 Type 2 diabetes mellitus with diabetic chronic kidney disease; N18.31 Chronic kidney disease, stage 3a; Z79.4 Long term (current) use of insulin; Z79.84 Long term (current) use of oral hypoglycemic drugs; Z87.891 Personal history of nicotine dependence; R06.02 Shortness of breath | CPT/HCPCS: 36415; 80048; 83880; 99214 ==

== ENCOUNTER → 2025-06-13 14:22 | Outpatient (BNVA) | payer OTHER, SELFPAY | PROVIDERS: PCP Nurse Practitioner; Visit Provider Internal Medicine Endocrinology, Diabetes & Metabolism | DX: E11.9 Type 2 diabetes mellitus without complications (principal); E78.5 Hyperlipidemia, unspecified; I50.9 Heart failure, unspecified; I87.2 Venous insufficiency (chronic) (peripheral) | CPT/HCPCS: 99213 ==